=== PATIENT | female | born 1975 | race Caucasian/White ===

== ENCOUNTER 2022-10-12 09:47 | Outpatient (CLI) | payer OTHER | END 2022-10-12 09:48 | disposition home or self-care (01) | LOC: CSHMAMMO 09:47 | PROVIDERS: ATTEND Family Medicine | DX: Z12.31 Encounter for screening mammogram for malignant neoplasm of breast (principal) | CPT/HCPCS: 77063; 77067 ==

== ENCOUNTER 2023-10-20 09:55 | Outpatient (CLI) | payer OTHER | END 2023-10-20 09:56 | disposition home or self-care (01) | LOC: CSHMAMMO 09:55 | PROVIDERS: ATTEND Obstetrics & Gynecology | DX: Z12.31 Encounter for screening mammogram for malignant neoplasm of breast (principal) | CPT/HCPCS: 77063; 77067 ==